=== PATIENT | female | born 1985 | race Caucasian/White ===

== ENCOUNTER 2017-05-23 11:42 | Outpatient (CLI) | payer MEDICAID ==
[2017-05-23 12:23] LABS: HCT - HEMATOCRIT 40.6 % (37.0-47.0); MEAN CORPUSCULAR HEMOGLOBIN 32.8 pg (27.0-31.0); MEAN CORPUSCULAR HGB CONC 34.5 g/dL (32.0-36.0); MEAN PLATELET VOLUME 8.8 fL (7.9-10.8); RED BLOOD COUNT 4.27 10^6/uL (4.20-5.40); RED CELL DISTRIBUTION WIDTH 12.8 % (12.0-15.0); WHITE BLOOD COUNT 9.9 x10^3/uL (4.8-10.8)
[2017-05-23 12:29] LABS: PT - PROTHROMBIN TIME 11.1 secs (9.9-12.6)
[2017-05-23 12:36] LABS: PARTIAL THROMBOPLASTIN TIME 30.2 secs (24.9-33.3)
[2017-05-23 12:59] LABS: IRON 96 ug/dL (28-170); TOTAL IRON BINDING CAPACITY 343 ug/dL (250-450); TRANSFERRIN 245 mg/dL (192-382)
[2017-05-23 13:11] LABS: FERRITIN 50.7 ng/mL (11.0-306.8)
[2017-05-23 13:24] LABS: THYROID STIMULATING HORMONE 2.16 uIU/mL (0.34-5.60)
== END 2017-05-23 11:43 | disposition home or self-care (01) ==
LOC: LAB 11:42
PROVIDERS: ATTEND Obstetrics & Gynecology
DX: N92.4 Excessive bleeding in the premenopausal period (principal)
CPT/HCPCS: 36415; 82728; 83540; 84439; 84443; 84466; 84481; 85610; 85730

== ENCOUNTER 2017-10-31 10:35 | Outpatient (CLI) | payer MEDICAID ==
[2017-10-31 11:16] LABS: BASOPHILS # (AUTO) 0.1 10^3/uL (0.0-0.1); BASOPHILS % (AUTO) 1.4 %; EOSINOPHILS # (AUTO) 0.1 10^3/uL (0.0-0.7); EOSINOPHILS % (AUTO) 1.6 %; HGB - HEMOGLOBIN 13.9 g/dL (12.0-16.0); LYMPHOCYTES # (AUTO) 2.7 10^3/uL (1.5-3.5); LYMPHOCYTES % (AUTO) 29.7 %; MEAN CORPUSCULAR HEMOGLOBIN 32.3 pg (27.0-31.0); MEAN CORPUSCULAR HGB CONC 34.2 g/dL (32.0-36.0); MEAN CORPUSCULAR VOLUME 94.5 fL (81.0-99.0); MEAN PLATELET VOLUME 8.8 fL (7.9-10.8); MONOCYTES # (AUTO) 0.6 10^3/uL (0.0-1.0); MONOCYTES % (AUTO) 6.5 %; NEUTROPHILS # (AUTO) 5.6 10^3/uL (1.5-6.6); NEUTROPHILS % (AUTO) 60.8 %; PLT - PLATELET COUNT 299 10^3/uL (130-450); RED CELL DISTRIBUTION WIDTH 12.9 % (12.0-15.0); WHITE BLOOD COUNT 9.2 x10^3/uL (4.8-10.8)
[2017-10-31 11:28] LABS: ALBUMIN 4.1 g/dL (3.2-5.5); ALBUMIN/GLOBULIN RATIO 1.1 (1.0-2.2); BILIRUBIN,TOTAL 0.6 mg/dL (0.2-1.0); CALCIUM 9.2 mg/dL (8.5-10.3); CREATININE 0.7 mg/dL (0.4-1.0); TOTAL PROTEIN 7.8 g/dL (6.7-8.2)
--- NOTE | 2017-10-31 12:47 | PREOP HISTORY & PHYSICAL ---
Physician: Whitney Lawrence DO DATE OF ADMISSION: 11/01/2017 HISTORY OF PRESENT ILLNESS: Lazara is a 30-year-old -0-0-1. The patient is a patient of [facility] who has had a chronic issue of heavy menstruation as well as dysmenorrhea. Through 2015 and 2017 she has been having 12 months of heavy menses and using very heavy pads. She is also passing clots bigger than her hand. She will bleed for 10 days and then have spotting for the last 2 days. Lazara does feel tired after her menstruation and denies any lightheadedness or dizziness. She has to take supplemental iron pills. With respect to pain, she feels that it is "sometimes feels like it's 1000.". Will get nausea due to her dysmenorrhea. She denies any pain when she is not on her menses. She denies any issues with defecation or urination. Ana has tried other forms of hormone therapies. She tried the Ortho Evra but gets bruises and she is poorly compliant on control pills. Her bleeding did improve by the Terri IUD, but it did not resolve her dysmenorrhea. I discussed with Lazara, the risks, benefits, alternatives, indications, expectations of a total laparoscopic hysterectomy, bilateral salpingectomy and cystoscopy. Included in our discussion were the risk of hemorrhage, infection and damage to surrounding organs, which may be an inadvertent laceration cauterization or ligation of the adjacent ureters, intestines or bladder. Furthermore, with this procedure she will no longer be able to have menses nor be able to have children. After all of her questions were answered to her satisfaction Lazara verbalized her desire to proceed with the aforementioned procedures. Consent forms have been signed. Lazara is currently doing well. Denies any nausea, vomiting, fevers, chills, diarrhea or constipation. She is currently accompanied today with her mother, who will be helping with her convalescence. PAST MEDICAL HISTORY 1. Anxiety. 2. Depression. 3. Seasonal allergies. She specifically denies hypertension, diabetes, or thyroid disorder. PAST SURGICAL HISTORY: Laparoscopic cholecystectomy. ALLERGIES: NO KNOWN DRUG ALLERGIES. MEDICATIONS: None. SOCIAL HISTORY: She normally smoked 1/4 pack per day of cigarettes, but states that she has quit as of yesterday. She does consume alcohol on a social basis. 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 Her is Nazario and she has a son named Ismael. PAST SURGICAL HISTORY: One term spontaneous vaginal delivery of son Ismael who weighed 7-1/4 pounds. She delivered at 37 weeks' gestation on 02/07/2009. PAST GYNECOLOGY HISTORY: Paps have been described as within normal limits. FAMILY HISTORY: She denies any female carcinomas. REVIEW OF SYSTEMS: Negative unless otherwise stated. PHYSICAL EXAMINATION: Height is 65 inches. Weight is 208 pounds, BMI 34.6. Blood pressure 110/82. GENERAL: Lazara is a well-developed, obese, female in no apparent distress. She is alert and oriented x3. Lazara is very pleasant, easy to speak to. She is a very talkative. HEENT: Within normal limits. HEART: Regular. No murmurs or rubs. LUNGS: Lungs are clear to auscultation bilaterally. ABDOMEN: Soft, nontender. No masses, rebound, rigidity or guarding. She does have 3 well-healed laparoscopic incisions from her cholecystectomy. EXTREMITIES: No edema, nontender. STUDIES 1. 06/06/2017 Pap smear and high risk human papilloma virus screens are both negative. 2. 05/23/2017 labs showed a PT of 11.1, INR 1.0. Iron 96, TIBC 343 percentage of iron saturation 28. White blood count 9.9, H and H of 14.0 and 40.6, platelets 307. Ferritin 50.7, free T4 0.7. TSH 2.16. Free T3 is 2.98. 2015 pelvic ultrasound showed that the uterus is retroverted measuring 9.4 x 4.2 x 6.9 cm, a volume of 133 mL, myometrial echotexture is normal. Endometrium 6 mm. Right ovary measures 2.2 x 0.9 x 0.9 cm. Small follicles. Left ovary is 3.6 x 1.4 x 2.6 cm, 2 dominant follicles 1.4 cm. No free fluid in the cul-de-sac. 06/05/2014 Pap smear is negative. ASSESSMENT 1. A 32-year-old G1, P1-0-0-1. 2. Dysmenorrhea. 3. Menorrhagia. PLAN 1. We will proceed to a scheduled total laparoscopic hysterectomy, bilateral salpingectomy and cystoscopy on 11/01/2017. 2. Her care to be n.p.o. as of midnight today. 3. Prescriptions for Lazara's postoperative care have been faxed to [facility] in [place], [place] specifically for Motrin, Tylenol and Colace. A handwritten prescription for oxycodone has been given to Lazara as well. 4. Lazara to get her preop labs today for a CBC, comprehensive panel, hCG and type and screen. 5. Anticipate Lazara going home later tomorrow afternoon. Lazara was to see me in 2 weeks at [facility] for routine postoperative examination. 6. Lazara to call me should she have any worsening fevers, chills, abdominal pain or vaginal bleeding. TD: 10/31/2017 13:46 MTDD
== END 2017-10-31 10:36 | disposition home or self-care (01) ==
LOC: LAB 10:35
PROVIDERS: ATTEND Obstetrics & Gynecology
DX: Z01.812 Encounter for preprocedural laboratory examination (principal); N94.4 Primary dysmenorrhea; N92.4 Excessive bleeding in the premenopausal period
CPT/HCPCS: 36415; 80053; 85025; 86850; 86900; 86901

== ENCOUNTER 2017-12-01 09:21 | Emergency (ER) | payer MEDICAID ==
[2017-12-01 09:37] VITALS: BP 122/84
[2017-12-01] MEDS ORDERED: IBUPROFEN 800 MG TABLET PO STA (10:40)
--- NOTE | 2017-12-01 12:14 | ED Physician Documentation ---
PD HPI URI - Stated complaint Stated Complaint: THROAT PX/COUGH - Chief complaint Chief Complaint: Resp - History obtained from History obtained from: Patient - History of Present Illness Timing duration: Days (5) Timing details: Still present Associated symptoms: Sore throat, Productive cough. No: Fever - Additional information Additional information: The patient is a 32-year-old female who presents with sore throat, productive cough, fatigue, and myalgias. Her cough started 5 days ago and her sore throat started last night. She denies fever or headache. She quit smoking cigarettes 3 weeks ago. She has not had a flu vaccination this year. Review of Systems Constitutional: reports: Myalgias, Fatigue. denies: Fever Ears: denies: Ear pain Nose: reports: Congestion Throat: reports: Sore throat Cardiac: denies: Chest pain / pressure Respiratory: reports: Cough. 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 - Present Medications Home Medications: Ambulatory Orders Medication Instructions Recorded Confirmed Benzonatate [Tessalon Perle] 100 mg PO BID #14 capsule 12/01/17 - Allergies Allergies/Adverse Reactions: Allergies Allergy/AdvReac Type Severity Reaction Status Date / Time lidocaine Allergy Hives Verified 12/01/17 09:37 - Social History Does the pt smoke?: No Smoking Status: Former smoker (Quit smoking 3 weeks ago.) Does the pt drink ETOH?: Yes ETOH Use: Wine, Beer, Liquor Does the pt have substance abuse?: Yes Substance Use and Type: Marijuana - Immunizations Immunizations are current?: Yes Immunizations: TDAP >10years/unknown - POLST Patient has POLST: No PD ED PE NORMAL - Vitals Vital signs reviewed: Yes (normal) - General General: Alert and oriented X 3, Well developed/nourished - HEENT HEENT: Atraumatic, EOMI, Ears normal, Pharynx benign - Neck Neck: Supple, no meningeal sign, No adenopathy - Cardiac Cardiac: RRR, No murmur - Respiratory Respiratory: Clear bilaterally - Abdomen Abdomen: Soft, Non tender - Back Back: No CVA TTP - Derm Derm: No rash - Extremities Extremities: No edema, No calf tenderness / cord - Neuro Neuro: Alert and oriented X 3, No motor deficit, Normal speech Results - Vitals Vitals: Oxygen O2 Source Room air - Labs Labs: Microbiology 12/01/17 10:00 Group A Strep Throat Culture - Final Throat MIXED OROPHARYNGEAL DEANNA PRESENT. NO BETA STREP PRESENT IN CULTURE. Laboratory Tests 12/01/17 12/01/17 10:00 10:55 Influenza A (Rapid) Negative Influenza B (Rapid) Negative Influenza Types A,B Ag - Group A Strep Rapid Negative PD MEDICAL DECISION MAKING - ED course Complexity details: reviewed results, considered differential, d/w patient ED course: The patient's presentation is most consistent with viral upper respiratory infection with cough. Strep screen and flu swab are both negative. Treatment in the emergency department included administration of ibuprofen 800 mg orally. She is being discharged with a prescription for Tessalon Perles. I discussed with her the expected course of illness, symptomatic treatment and outpatient follow-up, as well as potentially worrisome signs or symptoms that should prompt reevaluation in the emergency department. Departure - Departure Disposition: 01 Home, Self Care Clinical Impression: Viral URI with cough Condition: Stable Instructions: ED URI Viral Follow-Up: Darline Quinn ARNP [Primary Care Provider] - Prescriptions: Benzonatate [Tessalon Perle] 100 mg PO BID #14 capsule Comments: Use Tylenol or ibuprofen as needed for fever or discomfort. You can use Tessalon as prescribed if needed for cough. Drink plenty of fluids. Follow up with your primary physician within 2 weeks. Call to schedule appointment. Return to the emergency department if you develop increasing difficulty breathing, or otherwise worsening symptoms. Discharge Date/Time: 12/01/17 12:17
== END 2017-12-01 12:17 | disposition home or self-care (01) ==
LOC: ED 09:21
DX: J06.9 Acute upper respiratory infection, unspecified (principal); B97.89 Other viral agents as the cause of diseases classified elsewhere; M19.90 Unspecified osteoarthritis, unspecified site; Z87.891 Personal history of nicotine dependence
CPT/HCPCS: 87070; 87275; 87276; 87430; 99283; A9270

== ENCOUNTER 2018-06-20 11:00 | Emergency (ER) | payer MEDICAID ==
[2018-06-20 11:07] VITALS: BP 134/81
== END 2018-06-20 11:47 | disposition left against medical advice (07) ==
LOC: ED 11:00
DX: Z53.21 Procedure and treatment not carried out due to patient leaving prior to being seen by health care provider (principal)

== ENCOUNTER 2018-11-20 19:39 | Emergency (ER) | payer MEDICAID ==
--- NOTE | 2018-11-20 20:09 | ED Physician Documentation ---
PD HPI URI - Stated complaint Stated Complaint: FEVER/COUGH/VOMITING - Chief complaint Chief Complaint: Resp - History obtained from History obtained from: Patient - History of Present Illness Timing - onset: Yesterday Timing duration: Days (2) Timing details: Abrupt onset, Still present Associated symptoms: Fever, Chills, Productive cough, NVD (nausea without vomiting; some loose stool but not significant diarrhea.). No: Hemoptysis, Chest pain, Dyspnea Similar symptoms before: Has not had sx before Recently seen: Not recently seen Review of Systems Constitutional: reports: Fever, Chills, Myalgias, Fatigue Nose: reports: Congestion. denies: Rhinorrhea / runny nose Throat: reports: Sore throat Respiratory: reports: Cough. denies: Dyspnea GI: reports: Nausea. denies: Vomiting, Diarrhea (but loose) Skin: denies: Rash, Lesions Neurologic: reports: Headache (frontal). 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: Hysterectomy - Present Medications Home Medications: Ambulatory Orders Medication Instructions Recorded Confirmed Cetirizine [ZyrTEC] 06/20/18 Fluticasone [Flonase] 06/20/18 06/20/18 Loratadine/Pseudoephedrine 06/20/18 [Claritin-D 12 Hour Tablet] Benzonatate [Tessalon Perle] 100 - 200 mg PO TID PRN #30 capsule 11/20/18 Dexamethasone [Decadron] 4 mg PO DAILY #5 tablet 11/20/18 Ondansetron Odt [Zofran] 4 mg TL Q6H PRN #20 tablet 11/20/18 Oseltamivir [Tamiflu] 75 mg PO BID #10 capsule 11/20/18 - Allergies Allergies/Adverse Reactions: Allergies Allergy/AdvReac Type Severity Reaction Status Date / Time lidocaine Allergy Hives Verified 11/20/18 19:49 - Social History Does the pt smoke?: No Smoking Status: Never smoker Does the pt drink ETOH?: Yes Does the pt have substance abuse?: Yes - Immunizations Immunizations are current?: Yes Immunizations: TDAP >10years/unknown - POLST Patient has POLST: No PD ED PE NORMAL - Vitals Vital signs reviewed: Yes - General General: Alert and oriented X 3, No acute distress, Well developed/nourished - HEENT HEENT: Pharynx benign - Neck Neck: Supple, no meningeal sign, No adenopathy - Cardiac Cardiac: RRR (tachycardic), No murmur - Respiratory Respiratory: Clear bilaterally - Abdomen Abdomen: Soft, Non tender - Back Back: No CVA TTP - Derm Derm: Normal color, Warm and dry - Extremities Extremities: No deformity, No tenderness to palpate, No edema - Neuro Neuro: Alert and oriented X 3, No motor deficit, Normal speech Results - Vitals Vitals: Vital Signs - 24 hr 11/20/18 11/20/18 19:45 21:09 Temperature 39.3 C H 37.9 C H Heart Rate 125 H 113 H Respiratory 18 16 Rate Blood Pressure 134/97 H 135/87 H O2 Saturation 97 96 Oxygen O2 Source Room air - Labs Labs: Laboratory Tests 11/20/18 19:54 Influenza A (Rapid) POSITIVE H Influenza B (Rapid) Negative - Rads (name of study) chest xray Radiology: Prelim report reviewed PD MEDICAL DECISION MAKING - ED course Complexity details: reviewed results, re-evaluated patient, considered differential (Does have the flu, and appears ill by history but seems hydrated and is not vomiting. Can give meds for symptoms. Has deep cough so can check CXR for pneumonia. ), d/w patient Departure - Departure Disposition: 01 Home, Self Care Clinical Impression: Influenza A, Viral URI with cough Condition: Stable Record reviewed to determine appropriate education?: Yes Instructions: ED Flu Follow-Up: Darline Quinn ARNP [Primary Care Provider] - Prescriptions: Benzonatate [Tessalon Perle] 100 - 200 mg PO TID PRN #30 capsule PRN Reason: Cough Dexamethasone [Decadron] 4 mg PO DAILY #5 tablet Ondansetron Odt [Zofran] 4 mg TL Q6H PRN #20 tablet PRN Reason: Nausea / Vomiting Oseltamivir [Tamiflu] 75 mg PO BID #10 capsule Comments: Drink lots of fluids. Ondansetron if needed for nausea. Tylenol or ibuprofen as needed for fevers and aches. Decadron can be used to decrease inflammation and some of the immune symptoms. Tessalon can be used to help with cough. Tamiflu antiviral twice daily for 5 days to try to reduce the degree of symptoms from the flu. You likely be sick for about a week. Stay well-hydrated. Forms: Activity restrictions Discharge Date/Time: 11/20/18 21:14
[2018-11-20] MEDS ORDERED: KETOROLAC 30 MG/ML VIAL IM STA (20:24)
[2018-11-20] MEDS ORDERED: OSELTAMIVIR 75 MG CAPSULE PO STA (20:24)
[2018-11-20] MEDS ORDERED: ONDANSETRON ODT 4 MG Prepack 2 TL PRN (20:24)
[2018-11-20] MEDS ORDERED: DEXAMETHASONE 10 MG/ML VIAL PO STA (20:24)
[2018-11-20] MEDS ORDERED: ONDANSETRON ODT 4 MG TABLET TL STA (20:24)
--- NOTE | 2018-11-20 21:00 | XRAY Report ---
Reason: cough and fever Procedure Date: 11/20/2018 Accession Number: [id number] / [id number] Procedure: XR - Chest 1 View X-Ray CPT Code: 49090 FULL RESULT: EXAM: CHEST RADIOGRAPHY EXAM DATE: 11/20/2018 08:38 PM. CLINICAL HISTORY: Cough and fever. COMPARISON: [facility] W/PA CHEST RT 05/05/2013 3:44 AM. TECHNIQUE: 1 view. FINDINGS: Lungs/Pleura: No focal opacities evident. No pleural effusion. No pneumothorax. Mediastinum: Within exam limitations, the cardiomediastinal contour is normal. Other: None. IMPRESSION: Normal single view chest. RADIA
[2018-11-20 21:10] VITALS: BP 135/87
== END 2018-11-20 21:14 | disposition home or self-care (01) ==
LOC: ED 19:39
DX: J10.1 Influenza due to other identified influenza virus with other respiratory manifestations (principal)
CPT/HCPCS: 71045; 87275; 87276; 96372; 99283; A9270; Q0162

== ENCOUNTER 2019-01-29 11:34 | Outpatient (CLI) | payer MEDICAID, OTHER | END 2019-01-29 23:59 | disposition home or self-care (01) | LOC: LAB.N 11:34 | PROVIDERS: ATTEND Nurse Practitioner Gerontology | DX: L50.0 Allergic urticaria (principal) | CPT/HCPCS: 36415; 81599; 86003 ==

== ENCOUNTER 2019-04-19 08:28 | Emergency (ER) | payer OTHER ==
[2019-04-19 08:50] VITALS: BP 134/90
--- NOTE | 2019-04-19 08:53 | ED Physician Documentation ---
History of Present Illness - Stated complaint Stated Complaint: LT FOOT INJURY - Chief complaint Chief Complaint: Ext Problem - History obtained from History obtained from: Patient - History of Present Illness Timing: Prior to arrival - Additonal information Additional information: Patient is a 33-year-old female complaining of left ankle pain more on the media l side after accidentally rolling it earlier today. Patient reports that she tripped in her yard, but did not sustain other injuries. Patient reports pain and swelling, but denies significant change in range of motion, strength, or sensation. Patient is able to bear weight. No other improving or worsening factors noted. Review of Systems Skin: denies: Rash, Abrasion (s), Laceration (s) Musculoskeletal: reports: Extremity pain. 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 - Present Medications Home Medications: Ambulatory Orders Medication Instructions Recorded Confirmed Cetirizine [ZyrTEC] 06/20/18 Fluticasone [Flonase] 06/20/18 06/20/18 Loratadine 10 mg PO 04/19/19 - Allergies Allergies/Adverse Reactions: Allergies Allergy/AdvReac Type Severity Reaction Status Date / Time lidocaine Allergy Hives Verified 04/19/19 08:50 - Social History Does the pt smoke?: No Smoking Status: Never smoker Does the pt drink ETOH?: Yes Does the pt have substance abuse?: Yes - Immunizations Immunizations are current?: Yes Immunizations: TDAP >10years/unknown - POLST Patient has POLST: No PD ED PE NORMAL - Vitals Vital signs reviewed: Yes - General General: Alert and oriented X 3, No acute distress, Well developed/nourished - HEENT HEENT: Atraumatic, Moist mucous membranes - Cardiac Cardiac: Strong equal pulses (Cap refill brisk) - Respiratory Respiratory: No respiratory distress - Derm Derm: Normal color, Warm and dry, No rash, Other (No significant appreciable swelling to left ankle. No overlying skin changes otherwise.) - Extremities Extremities: No deformity. No: No tenderness to palpate (Extremely mild tenderness to the left medial malleoli with remainder of left lower extremity without deformity, tenderness, change in range of motion, sensation, or strength.) - Neuro Neuro: Alert and oriented X 3, No motor deficit, No sensory deficit - Psych Psych: Normal mood, Normal affect Results - Vitals Vitals: Vital Signs - 24 hr 04/19/19 08:47 Temperature 36.4 C L Heart Rate 100 Respiratory 18 Rate Blood Pressure 134/90 H O2 Saturation 97 Oxygen O2 Source Room air PD MEDICAL DECISION MAKING - ED course Complexity details: reviewed results, re-evaluated patient, considered differential, d/w patient ED course: Patient presenting with likely ankle sprain. Have low suspicion for dislocation or fracture, but obtained plain film. Plain films did find questionable talus fracture versus anatomical variant. Patient is not tender over this area and have low suspicion for true fracture.Do not find evidence of other abrasion, laceration, or trauma. No signs of infection, gout, or other complication. Do not have concern for DVT. Feel the patient can be treated supportively at home and also advised on return precautions and appropriate follow-up. Patient voiced understanding and is comfortable with discharge plan. Departure - Departure Disposition: 01 Home, Self Care Clinical Impression: Ankle sprain Qualifiers: Encounter type: initial encounter Involved ligament of ankle: unspecified ligament Laterality: left Qualified Code(s): S93.402A - Sprain of unspecified ligament of left ankle, initial encounter Condition: Good Instructions: ED Sprain Ankle W X Ray Follow-Up: Darline Quinn ARNP [Primary Care Provider] - Within 3 Days Comments: Recommend supportive care such as elevation, ice application, ibuprofen/Tylenol. May use [id number] bracing or Demario bandaging/wrap as needed. Recommend follow-up with your primary care physician in next 2 to 3 days return to ED sooner if experience new injury, worsening pain, or have other concerns.
--- NOTE | 2019-04-19 10:00 | XRAY Report ---
Reason: fall, pain to ankle. Procedure Date: 04/19/2019 Accession Number: [id number] / [id number] Procedure: XR - Ankle 3 View LT CPT Code: FULL RESULT: EXAM: LEFT ANKLE RADIOGRAPHY EXAM DATE: 04/19/2019 09:11 AM. CLINICAL HISTORY: Fall, pain to ankle. COMPARISON: None. TECHNIQUE: 3 views. FINDINGS: There is cortical irregularity involving the posterior talus that may represent a fracture or os trigonum. The ankle mortise is intact. IMPRESSION: Cortical irregularity involving the posterior aspect of the talus that may represent a fracture or an os trigonum. Clinical correlation is recommended. RADIA
== END 2019-04-19 10:20 | disposition home or self-care (01) ==
LOC: ED 08:28
DX: S93.402A Sprain of unspecified ligament of left ankle, initial encounter (principal); X50.1XXA Overexertion from prolonged static or awkward postures, initial encounter; Y92.007 Garden or yard of unspecified non-institutional (private) residence as the place of occurrence of the external cause
CPT/HCPCS: 99282

== ENCOUNTER 2022-02-02 13:39 | Emergency (ER) | payer OTHER ==
[2022-02-02 14:15] LABS: BASOPHILS # (AUTO) 0.1 10^3/uL (0.0-0.1); BASOPHILS % (AUTO) 0.7 %; EOSINOPHILS # (AUTO) 0.2 10^3/uL (0.0-0.7); EOSINOPHILS % (AUTO) 1.9 %; HCT - HEMATOCRIT 44.6 % (37.0-47.0); HGB - HEMOGLOBIN 15.4 g/dL (12.0-16.0); LYMPHOCYTES # (AUTO) 3.3 10^3/uL (1.5-3.5); LYMPHOCYTES % (AUTO) 26.8 %; MEAN CORPUSCULAR HEMOGLOBIN 33.2 pg (27.0-31.0); MEAN CORPUSCULAR HGB CONC 34.5 g/dL (32.0-36.0); MEAN CORPUSCULAR VOLUME 96.1 fL (81.0-99.0); MEAN PLATELET VOLUME 10.7 fL (7.9-10.8); MONOCYTES # (AUTO) 0.8 10^3/uL (0.0-1.0); MONOCYTES % (AUTO) 6.9 %; NEUTROPHILS # (AUTO) 7.7 10^3/uL (1.5-6.6); NEUTROPHILS % (AUTO) 63.5 %; PLT - PLATELET COUNT 332 10^3/uL (130-450); RED BLOOD COUNT 4.64 10^6/uL (4.20-5.40); RED CELL DISTRIBUTION WIDTH 12.6 % (12.0-15.0); WHITE BLOOD COUNT 12.1 x10^3/uL (4.8-10.8)
[2022-02-02 14:15] LABS: BILIRUBIN,URINE NEGATIVE (NEGATIVE); GLUCOSE, URINE (UA) NEGATIVE (NEGATIVE); KETONES,URINE (UA) NEGATIVE (NEGATIVE); LEUKOCYTE ESTERASE, URINE NEGATIVE (NEGATIVE); NITRITE,URINE NEGATIVE (NEGATIVE); OCCULT BLOOD,URINE MODERATE (NEGATIVE); PROTEIN,URINE NEGATIVE (NEGATIVE); UROBILINOGEN,URINE 0.2 (NORMAL) E.U./dL (NORMAL)
[2022-02-02 14:16] LABS: CLARITY,URINE CLEAR (CLEAR)
[2022-02-02 14:23] LABS: BACTERIA,URINE Few /HPF (None Seen); SQUAMOUS EPITHELIAL CELL,UR MOD Squamous (<= Few); WBC,URINE 0-3 /HPF (0-5)
[2022-02-02 14:36] LABS: ALBUMIN 4.5 g/dL (3.2-5.5); ALBUMIN/GLOBULIN RATIO 1.3 (1.0-2.2); BILIRUBIN,TOTAL 0.7 mg/dL (0.2-1.0); CALCIUM 9.6 mg/dL (8.5-10.3); CREATININE 0.9 mg/dL (0.4-1.0); POTASSIUM 4.2 mmol/L (3.5-5.0)
[2022-02-02] MEDS ORDERED: SODIUM CHLORIDE 0.9% 1,000 ML IV STA (14:40)
[2022-02-02] MEDS ORDERED: HYDROmorphone 1 MG/ML CARPUJECT IVP STA ×2 (14:40→15:40)
[2022-02-02] MEDS ORDERED: ONDANSETRON 4 MG/2 ML VIAL IVP STA (14:40)
[2022-02-02] MEDS ORDERED: KETOROLAC 15 MG/ML VIAL IVP STA (14:40)
--- NOTE | 2022-02-02 14:41 | ED Physician Documentation ---
PD HPI ABD PAIN - Stated complaint Stated Complaint: L SIDE AND BACK PX - Chief complaint Chief Complaint: Abd Pain - History obtained from History obtained from: Patient - Additional information Additional information: 36-year-old woman with history of remote hysterectomy but not oophorectomy presents with severe left flank pain radiating to the left lower quadrant starting last night with some urinary frequency but not dysuria per se. She thinks she may have had some hematuria. No history of renal colic. 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 - Present Medications Home Medications: Ambulatory Orders Medication Instructions Recorded Confirmed Cetirizine [ZyrTEC] 10 mg ORAL DAILY 06/20/18 02/02/22 Fluticasone [Flonase] 1 spr IN BID 06/20/18 02/02/22 Loratadine 10 mg PO DAILY 04/19/19 02/02/22 Ibuprofen [Motrin] 800 mg PO Q8H PRN #30 tablet 02/02/22 Oxycodone HCl/Acetaminophen 1 - 2 each PO Q6H PRN #20 tablet 02/02/22 [Percocet 5-325 mg Tablet] Tamsulosin [Flomax] 0.4 mg PO DAILY #14 cap 02/02/22 - Allergies Allergies/Adverse Reactions: Allergies Allergy/AdvReac Type Severity Reaction Status Date / Time lidocaine Allergy Hives Verified 02/02/22 13:46 - Social History Does the pt smoke?: No Smoking Status: Current every day smoker Does the pt drink ETOH?: Yes Does the pt have substance abuse?: No - Immunizations Immunizations are current?: No Immunizations: Other immun not current - POLST Patient has POLST: No PD ED PE NORMAL - Vitals Vital signs reviewed: Yes - General General: Alert and oriented X 3, Other (She appears uncomfortable and is clutching at her left side.) - Abdomen Abdomen: Normal bowel sounds, Soft, Other (Mild left abdominal tenderness and left flank tenderness without surgical signs) - Derm Derm: Normal color, Warm and dry - Extremities Extremities: No edema, No calf tenderness / cord - Neuro Neuro: Alert and oriented X 3, Normal speech Results - Vitals Vitals: Vital Signs - 24 hr 02/02/22 13:48 Temperature 36.8 C Heart Rate 82 Respiratory 20 Rate Blood Pressure 145/87 H O2 Saturation 97 Oxygen O2 Source Room air - Labs Labs: Laboratory Tests 02/02/22 02/02/22 02/02/22 14:09 14:10 14:10 WBC 12.1 H RBC 4.64 Hgb 15.4 Hct 44.6 MCV 96.1 MCH 33.2 H MCHC 34.5 RDW 12.6 Plt Count 332 MPV 10.7 Neut # (Auto) 7.7 H Lymph # (Auto) 3.3 [place] # (Auto) 0.8 Eos # (Auto) 0.2 Baso # (Auto) 0.1 Absolute Nucleated RBC 0.00 Nucleated RBC % 0.0 Sodium 137 Potassium 4.2 Chloride 102 Carbon Dioxide 25 Anion Gap 10.0 BUN 10 Creatinine 0.9 Estimated GFR (MDRD) 70 L Glucose 107 H Calcium 9.6 Total Bilirubin 0.7 AST 12 ALT 17 Alkaline Phosphatase 54 Total Protein 8.0 Albumin 4.5 Globulin 3.5 Albumin/Globulin Ratio 1.3 Lipase 36 Urine Color YELLOW Urine Clarity CLEAR Urine pH 6.0 Ur Specific [place] 1.020 Urine Protein NEGATIVE Urine Glucose (UA) NEGATIVE Urine Ketones NEGATIVE Urine Occult Blood MODERATE H Urine Nitrite NEGATIVE Urine Bilirubin NEGATIVE Urine Urobilinogen 0.2 (NORMAL) Ur Leukocyte Esterase NEGATIVE Urine RBC 6-10 H Urine WBC 0-3 Ur Squamous Epith Cells MOD Squamous H Urine Bacteria Few Ur Microscopic Review INDICATED Urine Culture Comments NOT INDICATED - Rads (name of study) 5 mm left UVJ stone with mild lightheaded left hydronephrosis. Nonobstructing small nephroliths. Radiology: EMP read contemporaneously PD MEDICAL DECISION MAKING - ED course ED course: 36-year-old woman presents with pain most consistent with renal colic, proven on CT with a 5 mm left UVJ stone. Pain was controlled here with 2 x 1 mg doses of Dilaudid and 1 dose of IV Toradol. Given urine strainers and counseled on their use as well as appropriate follow-up. I am prescribing a short course of short-acting opioid pain medication for this patient. 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 I have discussed that the opioids are for short term therapy only, and will not be refilled from the ED. Departure - Departure Disposition: 01 Home, Self Care Clinical Impression: Renal colic Condition: Good Record reviewed to determine appropriate education?: Yes Instructions: ED Stone Renal W Colic Prescriptions: Tamsulosin [Flomax] 0.4 mg PO DAILY #14 cap Ibuprofen [Motrin] 800 mg PO Q8H PRN #30 tablet PRN Reason: PAIN &/OR FEVER Oxycodone HCl/Acetaminophen [Percocet 5-325 mg Tablet] 1 - 2 each PO Q6H PRN #20 tablet PRN Reason: pain Comments: As discussed, you have a 5 mm stone at the left ureterovesicular junction. This is a kidney stone that is almost in the bladder. If you are having pain for more than a few more days, reasonable to follow-up with the urologist. The closest is in [place], the phone number is [phone]. If you end up seeing them, take the copy of the CAT scan on CD with you. As we discussed today you also had incidental stones within both kidneys, so you may have further episodes of kidney stone pain. [facility] [place]. I am prescribing a short course of narcotic pain medication for you. These are potentially dangerous and addictive medications that should be used carefully. These medications may constipate you. Take an ybge-vql-sicygbf stool softener (docusate) twice daily with plenty of water while taking these medications. If you go 24 hours without a bowel movement, take drnk-nig-rhqkhbe miralax, per package instructions. Do not drink or drive while taking these medications. If you received narcotic or sedating medications while in the emergency department, do not drive for 24 hours. Store this medication in a safe, secure place and out of reach of children. It is a violation of federal law to give or sell this medication to another person or to use in a manner other than prescribed. The ED will not refill narcotic prescriptions, including prescriptions lost or stolen. To dispose of unwanted medications: 1. [facility] at [address] in [place] has a medication drop box. They accept prescription medications (in pill form) Monday through Monday 9:00 a.m. to 5:00 p.m. 2. The [facility] [employer] [facility] accepts prescription medications (in pill form only) for disposal year round. Call for more information. 3. Contact the [facility] for the next [facility] sponsored prescription drug collection event. , [phone], or [phone]; Note that many narcotic pain relievers also contain Tylenol/acetaminophen. Please ensure that your total dose of acetaminophen from all sources does not exceed 3 g (3000 mg) per day.
--- NOTE | 2022-02-02 15:34 | CT Report ---
PROCEDURE: Abdomen/Pelvis WO INDICATIONS: L flank pain TECHNIQUE: Noncontrast 5 mm thick sections acquired from the diaphragms to the symphysis. 5 mm coronal and sagi ttal reformats were then performed. For radiation dose reduction, the following was used: automated exposure control, adjustment of mA and/or kV according to patient size. COMPARISON: None. FINDINGS: Image quality: Excellent. ABDOMEN: Lung bases: Lung bases are clear. Heart size is normal. Solid organs: Liver and spleen are normal in size. Gallbladder is surgically absent Pancreas is no rmal in contours. No adrenal nodules. Kidneys are normal in size. There are a few small less than 5 mm or not certain calculi within the bilateral kidneys. No right hydronephrosis nor right ureteral d ilatation or calcification. There is mild left hydronephrosis and left ureteral dilatation. There is a 5 mm calculus at the left ureterovesical junction. Peritoneum and bowel: Unenhanced bowel loops demonstrate normal wall thickness and caliber. Normal appendix. No free fluid or air. Nodes and vessels: No retroperitoneal or mesenteric adenopathy by size criteria. Aorta and inferior vena cava are normal in caliber. Miscellaneous: No ventral hernias. PELVIS: Genitourinary: Urinary bladder is decompressed. Miscellaneous: No inguinal hernias or adenopathy. Bones: No suspicious bony lesions. No vertebral body compression fractures. IMPRESSION: 1. Left ureterovesical junction calculus associated with mild left hydronephrosis. 2. Nonobstructing small bilateral renal calculi. 3. Normal appendix. Reviewed by: Amol Mathias MD on 02/02/2022 3:33 PM PDT Approved by: Amol Mathias MD on 02/02/2022 3:33 PM PDT Station ID: [id number]
[2022-02-02 16:03] VITALS: BP 146/93
== END 2022-02-02 16:20 | disposition home or self-care (01) ==
LOC: ED 13:39
DX: N13.2 Hydronephrosis with renal and ureteral calculous obstruction (principal); F17.200 Nicotine dependence, unspecified, uncomplicated
CPT/HCPCS: 36415; 74176; 80053; 81001; 83690; 85025; 96374; 96375; 99284; J1170; 81003; 87086

== ENCOUNTER 2022-09-25 10:10 | Emergency (ER) | payer OTHER ==
[2022-09-25 10:20] VITALS: BP 149/101
[2022-09-25] MEDS ORDERED: ONDANSETRON 4 MG/2 ML VIAL IVP STA (10:27)
[2022-09-25] MEDS ORDERED: SODIUM CHLORIDE 0.9% 1,000 ML IV STA (10:27)
[2022-09-25] MEDS ORDERED: KETOROLAC 15 MG/ML VIAL IVP STA (10:27)
[2022-09-25] MEDS ORDERED: HYDROmorphone 1 MG/ML CARPUJECT IVP STA (10:27)
--- NOTE | 2022-09-25 10:28 | ED Physician Documentation ---
PD HPI ABD PAIN - Stated complaint Stated Complaint: ABD PX/NAUSEA - Chief complaint Chief Complaint: Abd Pain - History obtained from History obtained from: Patient - Additional information Additional information: 37-year-old woman with history of renal colic presents with sudden onset left flank pain radiating to the left groin starting around 8 AM this morning. It is very consistent with prior episodes of renal colic. Last episode of renal colic was in January of this year at which time a CT demonstrated bilateral nephroliths. She has never required intervention on kidney stones. 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 - Present Medications Home Medications: Ambulatory Orders Medication Instructions Recorded Confirmed Cetirizine [ZyrTEC] 10 mg ORAL DAILY 06/20/18 02/02/22 Fluticasone [Flonase] 1 spr IN BID 06/20/18 02/02/22 Loratadine 10 mg PO DAILY 04/19/19 02/02/22 Ibuprofen [Motrin] 800 mg PO Q8H PRN #30 tablet 02/02/22 Oxycodone HCl/Acetaminophen 1 - 2 each PO Q6H PRN #20 tablet 02/02/22 [Percocet 5-325 mg Tablet] Tamsulosin [Flomax] 0.4 mg PO DAILY #14 cap 02/02/22 Oxycodone HCl/Acetaminophen 1 - 2 each PO Q6H PRN #14 tablet 09/25/22 [Percocet 5-325 mg Tablet] Tamsulosin [Flomax] 0.4 mg PO DAILY #14 cap 09/25/22 - Allergies Allergies/Adverse Reactions: Allergies Allergy/AdvReac Type Severity Reaction Status Date / Time lidocaine Allergy Hives Verified 09/25/22 10:20 - Social History Does the pt smoke?: No Smoking Status: Current every day smoker Does the pt drink ETOH?: Yes Does the pt have substance abuse?: No - Immunizations Immunizations are current?: No Immunizations: Other immun not current - POLST Patient has POLST: No PD ED PE NORMAL - Vitals Vital signs reviewed: Yes - General General: Alert and oriented X 3, Other (Appears uncomfortable and in pain) - Abdomen Abdomen: Normal bowel sounds, Soft, Other (Mild suprapubic tenderness, no flank tenderness.) - Derm Derm: Normal color, Warm and dry - Neuro Neuro: Alert and oriented X 3, Normal speech Results - Vitals Vitals: Vital Signs - 24 hr 09/25/22 10:17 Temperature 36.5 C Heart Rate 106 H Respiratory 20 Rate Blood Pressure 149/101 H O2 Saturation 99 Oxygen O2 Source Room air - Labs Labs: Laboratory Tests 09/25/22 09/25/22 09/25/22 10:22 10:40 10:40 WBC 10.6 RBC 4.63 Hgb 15.2 Hct 44.2 MCV 95.5 MCH 32.8 H MCHC 34.4 RDW 12.3 Plt Count 351 MPV 10.5 Neut # (Auto) 6.3 Lymph # (Auto) 3.3 [place] # (Auto) 0.8 Eos # (Auto) 0.2 Baso # (Auto) 0.1 Absolute Nucleated RBC 0.00 Nucleated RBC % 0.0 Sodium 138 Potassium 3.8 Chloride 104 Carbon Dioxide 24 Anion Gap 10.0 BUN 11 Creatinine 0.9 Estimated GFR (MDRD) 70 L Glucose 125 H Calcium 9.5 Urine Color DARK YELLOW Urine Clarity CLEAR Urine pH 6.0 Ur Specific [place] >=1.030 H Urine Protein NEGATIVE Urine Glucose (UA) NEGATIVE Urine Ketones NEGATIVE Urine Occult Blood MODERATE H Urine Nitrite NEGATIVE Urine Bilirubin NEGATIVE Urine Urobilinogen 0.2 (NORMAL) Ur Leukocyte Esterase NEGATIVE Urine RBC 0-5 Urine WBC 0-3 Ur Squamous Epith Cells MOD Squamous H Urine Bacteria Few Ur Microscopic Review INDICATED Urine Culture Comments NOT INDICATED Urine HCG, Qual NEGATIVE PD MEDICAL DECISION MAKING - ED course ED course: 37-year-old woman who has a history of renal colic presents with sudden onset pain consistent with prior episodes of renal colic. After the administration of IV Toradol, Dilaudid, and Zofran pain was almost gone and she was agreeable to discharge. No repeat imaging was done today given her relatively young age and consistency of the history and physical with the diagnosis of renal colic. Prior CT from January of this year reviewed, she had 2 nephroliths on the right, 1 nephrolith on the left. Departure - Departure Disposition: 01 Home, Self Care Clinical Impression: Renal colic Condition: Good Record reviewed to determine appropriate education?: Yes Instructions: ED Stone Renal W Colic Prescriptions: Tamsulosin [Flomax] 0.4 mg PO DAILY #14 cap Oxycodone HCl/Acetaminophen [Percocet 5-325 mg Tablet] 1 - 2 each PO Q6H PRN #14 tablet PRN Reason: pain Comments: I sent your prescription to [facility] in [place]. Follow-up with your doctor on or around Monday if not improved, return for new or worsening symptoms. I am prescribing a short course of narcotic pain medication for you. These are potentially dangerous and addictive medications that should be used carefully. These medications may constipate you. Take an ovyl-syx-gtnlvjz stool softener (docusate) twice daily with plenty of water while taking these medications. If you go 24 hours without a bowel movement, take bewl-yzm-josgnsy miralax, per package instructions. Do not drink or drive while taking these medications. If you received narcotic or sedating medications while in the emergency department, do not drive for 24 hours. Store this medication in a safe, secure place and out of reach of children. It is a violation of federal law to give or sell this medication to another person or to use in a manner other than prescribed. The ED will not refill narcotic prescriptions, including prescriptions lost or stolen. To dispose of unwanted medications: 1. [facility] at [address] in [place] has a medication drop box. They accept prescription medications (in p ill form) Monday through Monday 9:00 a.m. to 5:00 p.m. 2. The [facility] Department accepts prescription medications (in pill form only) for disposal year round. Call for more information. 3. Contact the [facility] for the next [facility] sponsored prescription drug collection event. , [phone], or [phone]; Note that many narcotic pain relievers also contain Tylenol/acetaminophen. Please ensure that your total dose of acetaminophen from all sources does not exceed 3 g (3000 mg) per day.
[2022-09-25 10:34] LABS: BILIRUBIN,URINE NEGATIVE (NEGATIVE); GLUCOSE, URINE (UA) NEGATIVE (NEGATIVE); KETONES,URINE (UA) NEGATIVE (NEGATIVE); LEUKOCYTE ESTERASE, URINE NEGATIVE (NEGATIVE); NITRITE,URINE NEGATIVE (NEGATIVE); OCCULT BLOOD,URINE MODERATE (NEGATIVE); PROTEIN,URINE NEGATIVE (NEGATIVE); UROBILINOGEN,URINE 0.2 (NORMAL) E.U./dL (NORMAL)
[2022-09-25 10:37] LABS: CLARITY,URINE CLEAR (CLEAR); HCG UR QUAL NEGATIVE
[2022-09-25 10:52] LABS: BACTERIA,URINE Few /HPF (None Seen); RBC,URINE 0-5 /HPF (0-5); SQUAMOUS EPITHELIAL CELL,UR MOD Squamous (<= Few); WBC,URINE 0-3 /HPF (0-5)
[2022-09-25 10:54] LABS: BASOPHILS # (AUTO) 0.1 10^3/uL (0.0-0.1); BASOPHILS % (AUTO) 0.8 %; EOSINOPHILS # (AUTO) 0.2 10^3/uL (0.0-0.7); EOSINOPHILS % (AUTO) 1.7 %; HCT - HEMATOCRIT 44.2 % (37.0-47.0); HGB - HEMOGLOBIN 15.2 g/dL (12.0-16.0); LYMPHOCYTES # (AUTO) 3.3 10^3/uL (1.5-3.5); MEAN CORPUSCULAR HEMOGLOBIN 32.8 pg (27.0-31.0); MEAN CORPUSCULAR HGB CONC 34.4 g/dL (32.0-36.0); MEAN CORPUSCULAR VOLUME 95.5 fL (81.0-99.0); MEAN PLATELET VOLUME 10.5 fL (7.9-10.8); MONOCYTES # (AUTO) 0.8 10^3/uL (0.0-1.0); MONOCYTES % (AUTO) 7.5 %; NEUTROPHILS # (AUTO) 6.3 10^3/uL (1.5-6.6); NEUTROPHILS % (AUTO) 58.8 %; PLT - PLATELET COUNT 351 10^3/uL (130-450); RED BLOOD COUNT 4.63 10^6/uL (4.20-5.40); RED CELL DISTRIBUTION WIDTH 12.3 % (12.0-15.0); WHITE BLOOD COUNT 10.6 x10^3/uL (4.8-10.8)
[2022-09-25 11:00] LABS: CALCIUM 9.5 mg/dL (8.5-10.3); CREATININE 0.9 mg/dL (0.4-1.0); POTASSIUM 3.8 mmol/L (3.5-5.0)
== END 2022-09-25 11:51 | disposition home or self-care (01) ==
LOC: ED 10:10
DX: N23 Unspecified renal colic (principal); F17.200 Nicotine dependence, unspecified, uncomplicated
CPT/HCPCS: 36415; 80048; 81001; 81025; 85025; 96374; 99283; J1170; 81003; 87086